=== PATIENT | female | born 1965 | race Caucasian/White ===

== ENCOUNTER 2019-03-13 11:18 | Day surgery (SDC) | payer OTHER ==
[~2019-03-13] VITALS: Ht 152.4 cm; Wt 73.5 kg
[~2019-03-13 11:18] MED LIST: BUPIVACAINE /PF 0.25% 30 ML VIAL INJ ONE; IOHEXOL 300 mgI/mL, 50 mL INFUS..BTL IV ONE; LIDOCAINE 2%, 20 ML MDV ONE; methylPREDNISolone ACETATE 40 MG/ML ONE
[2019-03-13] MEDS ORDERED: DIPHENHYDRAMINE INJ 50 MG/ML VIAL ONE (11:57)
[2019-03-13] MEDS ORDERED: MIDAZOLAM HCL 5 MG/5 ML VIAL ONE (11:57)
[2019-03-13 14:18] VITALS: BP_SYST 131
== END 2019-03-13 13:00 | disposition home or self-care (01) ==
LOC: SDS 11:18
PROVIDERS: ATTEND Internal Medicine
DX: M51.9 Unspecified thoracic, thoracolumbar and lumbosacral intervertebral disc disorder (principal); M54.5 Low back pain; Z98.890 Other specified postprocedural states
CPT/HCPCS: 62323; J1030; J2001; J2250; J3490; J7120; Q9967; 76000; J1200